=== PATIENT | female | born 1945 | race African-American/Black ===

== ENCOUNTER 2024-02-09 08:16 | Inpatient (IN) | payer BC ==
[~2024-02-09] VITALS: Ht 175.3 cm; Wt 89.4 kg
[2024-02-09 08:18] VITALS: O2SAT 97
[2024-02-09 09:21] LABS: HEMATOCRIT. 37.9 % (36.0-48.0); HEMOGLOBIN. 12.9 g/dL (12.0-16.0); MEAN CORPUSCULAR HEMOGLOBIN 28.3 pg (28.0-32.0); MEAN CORPUSCULAR VOLUME 83.3 fL (81.0-99.0); MEAN PLATELET VOLUME 8.4 fl (7.4-10.4); PLATELET 348 x1000/uL (130-400); RED BLOOD CELL COUNT 4.54 mill/uL (4.2-5.4); RED CELL DISTRIBUTION WIDTH 17.8 % (11.6-14.6)
[2024-02-09 09:23] LABS: DIFFERENTIAL COMMENT 1
[2024-02-09 09:42] LABS: CHLORIDE 111 mEq/L (98-107); POTASSIUM 3.8 mEq/L (3.5-5.1); SODIUM 144 mEq/L (136-145)
[2024-02-09 09:43] LABS: CARBON DIOXIDE 27 mEq/L (21-32)
[2024-02-09 09:44] LABS: CALCIUM 8.9 mg/dL (8.7-10.4)
[2024-02-09 09:48] LABS: CREATININE 1.2 mg/dL (0.6-1.0); GLUCOSE 128 mg/dL (70-105); UREA NITROGEN BLOOD 11 mg/dL (9-23)
[2024-02-09 10:03] LABS: TROPONIN I HIGH SENSITIVITY 98 ng/L (3.0-34)
[2024-02-09 10:24] LABS: ANISOCYTOSIS 1+; PLATELET ESTIMATE NORMAL
[2024-02-09] MEDS: ASPIRIN 81MG TABLET PO ONE (10:43)
[2024-02-09 10:58] LABS: CLARITY URINE CLEAR (CLEAR); COLOR URINE YELLOW (YELLOW); GLUCOSE URINE NEGATIVE (NEGATIVE); KETONES URINE NEGATIVE (NEGATIVE); LEUKOCYTE ESTERASE URINE 2+ (NEGATIVE); NITRITE URINE NEGATIVE (NEGATIVE); OCCULT BLOOD URINE NEGATIVE (NEGATIVE); PROTEIN URINE 1+ (NEGATIVE); SPECIFIC GRAVITY URINE 1.023 (1.005-1.030)
[2024-02-09] MEDS ORDERED: GUAIFENESIN 200MG/10ML SUGAR FREE UDC PO PRN (11:30)
[2024-02-09] MEDS ORDERED: MAGNESIUM/ALUMINUM HYDROXIDE/SIMETHICONE 30ML UDC PO PRN (11:30)
[2024-02-09] MEDS ORDERED: HYDROCODONE/ACETAMINOPHEN 5/325MG TABLET PO PRN (11:30)
[2024-02-09] MEDS ORDERED: NALOXONE HCL 0.4MG/ML VIAL IV PRN (11:30)
[2024-02-09] MEDS ORDERED: DEXTROSE 50% WATER 50ML SYRINGE IV PRN (11:30)
[2024-02-09] MEDS ORDERED: ACETAMINOPHEN 325MG TABLET PO PRN ×2 (11:30)
[2024-02-09] MEDS ORDERED: IPRATROPIUM/ALBUTEROL 0.5-3(2.5)MG/3ML NEB HHN PRN (11:30)
[2024-02-09] MEDS ORDERED: ONDANSETRON HCL 4MG/2ML INJ IV PRN (11:30)
[2024-02-09] MEDS ORDERED: DOCUSATE SODIUM 100MG CAPSULE PO PRN (11:30)
[2024-02-09] MEDS ORDERED: PIPERACILLIN/TAZOBACTAM 3.375 G in DEXTROSE 5% WATER 50 ML IV SCH (11:30)
[2024-02-09 11:49] LABS: SQUAMOUS EPITHELIAL CELL URINE 2+ /lpf (RARE/1+)
[2024-02-09 11:50] LABS: MUCUS URINE 2+ /lpf (< = 2+)
[2024-02-09 11:53] LABS: BACTERIA URINE 3+; RBC URINE 0-2 /hpf (0-2)
[2024-02-09 12:03] LABS: TROPONIN I HIGH SENSITIVITY 196 ng/L (3.0-34)
[2024-02-09 12:17] LABS: SODIUM URINE RANDOM 101 mEq/L
[2024-02-09 12:24] LABS: *AMPHETAMINES SCREEN URINE NEGATIVE (NEGATIVE); *BARBITURATES SCREEN URINE NEGATIVE (NEGATIVE); *BENZODIAZEPINES SCREEN URINE NEGATIVE (NEGATIVE); *COCAINE SCREEN URINE PRESUMPTIVE POSITIVE (NEGATIVE); CANNABINOID URINE SCREEN PRESUMPTIVE POSITIVE (NEGATIVE); ECSTASY MDMA SCREEN URINE NEGATIVE (NEGATIVE); METHADONE URINE SCREEN NEGATIVE (NEGATIVE); OPIATES URINE SCREEN NEGATIVE (NEGATIVE); PHENCYCLIDINE URINE SCREEN NEGATIVE (NEGATIVE)
[2024-02-09 12:31] LABS: LACTIC ACID 3.8 mmol/L (0.4-2.0)
[2024-02-09 13:02] LABS: OSMOLALITY URINE 731 mOsm/kg (500-850)
[2024-02-09] MEDS: INSULIN LISPRO 100 UNITS/ML SUBCUT SCH (13:17)
[2024-02-09] MEDS: SODIUM CHLORIDE 0.9% 1,000 ML IV SCH (13:54)
[2024-02-09] MEDS: BLOOD SUGAR DIAGNOSTIC STRIP TEST SCH (13:58)
[2024-02-09] MEDS: INSULIN GLARGINE 100 UNITS/ML SUBCUT SCH (14:25)
[2024-02-09] MEDS: ENOXAPARIN 40MG/0.4ML SYR SUBCUT SCH (14:37)
[2024-02-09] MEDS: LEVOFLOXACIN 750MG PREMIX 150 ML IV SCH (14:37)
[2024-02-09 16:13] LABS: CREATINE KINASE MB FRACTION 1.5 ng/mL (0.5-3.6)
[2024-02-09 22:00] VITALS: BP 129/62; PULSE 72; RESP 18; TEMP 36.8072
[2024-02-10] VITALS: BP 158/63; PULSE 79; RESP 16; TEMP 36.3918; O2SAT 98
[2024-02-10 01:59] LABS: CREATINE KINASE MB FRACTION 1.5 ng/mL (0.5-3.6)
[2024-02-10 04:00] VITALS: BP 164/100; PULSE 78; RESP 20; TEMP 36.22512; O2SAT 100
[2024-02-10] MEDS: CLONIDINE 0.1MG TABLET PO PRN (05:51)
[2024-02-10] MEDS: INSULIN LISPRO 100 UNITS/ML SUBCUT SCH (05:52)
[2024-02-10 06:25] LABS: CARBON DIOXIDE 24 mEq/L (21-32); CHLORIDE 110 mEq/L (98-107); POTASSIUM 3.6 mEq/L (3.5-5.1); SODIUM 141 mEq/L (136-145)
[2024-02-10 06:26] LABS: CALCIUM 9.2 mg/dL (8.7-10.4)
[2024-02-10 06:31] LABS: GLUCOSE 97 mg/dL (70-105); TRIGLYCERIDE 72 mg/dL (0-150); UREA NITROGEN BLOOD 7 mg/dL (9-23)
[2024-02-10 06:32] LABS: CHOLESTEROL 140 mg/dL (<200); LDL CHOLESTEROL 80 mg/dL (5-100); T4 FREE 0.96 ng/dL (0.89-1.76); THYROID STIMULATING HORMONE 1.49 uIU/mL (0.55-4.78)
[2024-02-10 06:33] LABS: HDL CHOLESTEROL 46 mg/dL (>65)
[2024-02-10] MEDS ORDERED: TOPI-95 MT (06:36)
[2024-02-10] MEDS ORDERED: SIMV-43 MT (06:36)
[2024-02-10] MEDS ORDERED: FLUT1BLS3 INH (06:36)
[2024-02-10] MEDS ORDERED: DOCU100T MT (06:36)
[2024-02-10] MEDS ORDERED: OMEP20TA23 PO (06:36)
[2024-02-10] MEDS ORDERED: TOLT2TAB18 PO (06:36)
[2024-02-10] MEDS ORDERED: RISP1SOL4 PO (06:36)
[2024-02-10] MEDS ORDERED: CHOL400D7 MT (06:36)
[2024-02-10] MEDS ORDERED: LIFI1DRO3 EACHEYE (06:36)
[2024-02-10 06:44] LABS: BASOPHILS % 0.8 % (0.0-2.0); EOSINOPHILS % 0.7 % (0.0-5.0); HEMATOCRIT. 38.9 % (36.0-48.0); HEMOGLOBIN. 13.3 g/dL (12.0-16.0); LYMPHOCYTES % 15.7 % (20.0-50.0); MEAN CORPUSCULAR HEMOGLOBIN 28.3 pg (28.0-32.0); MEAN CORPUSCULAR HGB CONC 34.1 g/dL (31.0-37.0); MEAN CORPUSCULAR VOLUME 82.9 fL (81.0-99.0); MEAN PLATELET VOLUME 8.4 fl (7.4-10.4); MONOCYTES % 12.1 % (2.0-8.0); NEUTROPHILS % 70.7 % (40.0-76.0); PLATELET 310 x1000/uL (130-400); RED BLOOD CELL COUNT 4.69 mill/uL (4.2-5.4); RED CELL DISTRIBUTION WIDTH 17.4 % (11.6-14.6)
[2024-02-10 08:00] VITALS: BP 122/58; PULSE 73; RESP 18; TEMP 36.44736; O2SAT 97
[2024-02-10] MEDS: ASPIRIN 81MG EC TABLET PO SCH (08:31)
[2024-02-10] MEDS: LISINOPRIL 10MG TABLET PO SCH (08:31)
[2024-02-10] MEDS ORDERED: ASPIRIN 81MG TABLET PO SCH (09:00)
== END 2024-02-10 11:00 | disposition left against medical advice (07) | DRG 918 ==
LOC: ER 08:16 → 5WST 10:24 → EDBEDREQ 10:25 → 8WST 20:31
PROVIDERS: ADMIT Preventive Medicine Clinical Informatics; ATTEND Preventive Medicine Clinical Informatics
DX: T40.5X1A Poisoning by cocaine, accidental (unintentional), initial encounter (principal); I47.10 Supraventricular tachycardia, unspecified; I20.1 Angina pectoris with documented spasm; N17.9 Acute kidney failure, unspecified; N39.0 Urinary tract infection, site not specified; E11.9 Type 2 diabetes mellitus without complications; F19.10 Other psychoactive substance abuse, uncomplicated; I48.91 Unspecified atrial fibrillation; D72.829 Elevated white blood cell count, unspecified; I10 Essential (primary) hypertension; Z53.21 Procedure and treatment not carried out due to patient leaving prior to being seen by health care provider; Z88.0 Allergy status to penicillin; Y92.89 Other specified places as the place of occurrence of the external cause
CPT/HCPCS: 36415; 71045; 76770; 80048; 80061; 80305; 81003; 82550; 82553; 82962; 83036; 83605; 83880; 83930; 83935; 84145; 84300; 84439; 84443; 84484; 85025; 93005; 97165; 99291; J1650; J1815; J1956